=== PATIENT | female | born 1965 | race Caucasian/White ===

== ENCOUNTER 2016-09-14 08:02 | Day surgery (SDC) | payer OTHER ==
[2016-09-11 16:20] VITALS: BMI 31.6
[2016-09-14] MEDS ORDERED: GENTAMICIN SO4 80 MG/2 ML VIAL ONE ×2 (09:00→11:38)
[2016-09-14] MEDS ORDERED: ceFAZolin SODIUM 1 GM VIAL ONE ×3 (09:00→11:38)
[2016-09-14] MEDS ORDERED: ONDANSETRON 4 MG/2 ML VIAL ONE ×2 (09:06→13:27)
[2016-09-14] MEDS ORDERED: LIDOCAINE HCL/PF 2% SDV 5ML VIAL ONE (09:06)
[2016-09-14] MEDS ORDERED: ROCURONIUM BROMIDE 50 MG/5 ML VIAL ONE ×2 (09:06→11:07)
[2016-09-14] MEDS ORDERED: DEXAMETHASONE SOD PHOSPHATE 4 MG/1 ML VIAL ONE ×2 (09:06→13:27)
[2016-09-14] MEDS ORDERED: MIDAZOLAM HCL 2 MG/2 ML SINGLE DOSE VIAL ONE (09:38)
[2016-09-14] MEDS ORDERED: PROPOFOL 20 ML ONE (09:39)
[2016-09-14] MEDS ORDERED: EPINEPHrine/PF 1 MG/1 ML (1:1,000) AMPULE ONE (09:50)
[2016-09-14] MEDS ORDERED: LIDOCAINE HCL 1%, 10 MG/ML (20ML VIAL) ONE (09:50)
[2016-09-14] MEDS ORDERED: BUPIVACAINE HCL/PF 2.5 MG/ML - 30 ML VIAL IJ ONE (10:41)
[2016-09-14] MEDS ORDERED: ACETAMINOPHEN INJECTION 100 ML IVPB ONE (13:29)
[2016-09-14] MEDS ORDERED: ONDANSETRON 4 MG/2 ML VIAL IVPUSH PRN (13:36)
[2016-09-14] MEDS ORDERED: LACTATED RINGERS SOLUTION 1,000 ML IV SCH ×2 (13:45→14:30)
[2016-09-14] MEDS ORDERED: BACITRACIN 30 GM TUBE TOPICAL OINTMENT ONE (13:47)
[2016-09-14] MEDS ORDERED: ACETAMINOPHEN 1000 MG/100 ML VIAL (NON FORMULARY) IVPB PRN (14:19)
[2016-09-14] MEDS ORDERED: ONDANSETRON 4 MG/2 ML VIAL IVPB PRN (14:19)
[2016-09-14] MEDS: PROMETHAZINE HCL 25 MG/1 ML VIAL IVPUSH PRN ×2 (15:04→15:17)
[2016-09-14] MEDS ORDERED: FAMOTIDINE 20 MG/50 ML IVPB 50 ML IVPB ONE (15:23)
--- NOTE | 2016-09-14 15:27 | OP ---
DATE OF OPERATION: 09/14/2016 TITLE OF PROCEDURE: Bilateral 2nd stage of breast reconstruction with removal of existing breast prosthetic devices and replacement with permanent breast prosthetic devices, which are silicone gel breast implants, bilateral periprosthetic capsulectomies, bilateral revision of breast reconstruction using re-elevation of mastectomy flap, and resetting of the inframammary fold, lateral chest wall lipectomy with direct excision and liposuction for revision of bilateral breast reconstructions. ATTENDING SURGEON: Chip Londono MD ACTUARIAL MATHEMATICIAN: There were no assistants. ANESTHESIA: General endotracheal anesthesia. Patient was marked in the holding area, all incisions, resulting scars. Risks, benefits, and alternatives were discussed. She was awake and aware of all incisions and resulting scars. DESCRIPTION OF PROCEDURE: The patient was brought to the operating room, placed in a supine position. All pressure points were carefully padded by surgical and anesthesia teams. Two grams of Ancef were given preoperatively. She was given SONIA hose and sequential compression devices. She was prepped and draped in standard surgical fashion. A time-out was called. Patient, procedure, and side site were verified. After which, attention was first directed towards the left breast, where the lateral inframammary fold was incised. The mastectomy flap was re-elevated laterally. Excess lateral fat was excised under direct vision. The lateral fat roll as it continued into the axilla was unfolded, and the excess was removed. A new inframammary fold was created by plication of the residual skin and fat to the proposed inframammary fold with a series of interrupted buried 2-0 Vicryl sutures. The skin was tailor-tacked with kirstie at the new inframammary fold. The vertical breast incision was then re-incised, and dissection carried down to the level of the periprosthetic capsule. A capsulotomy was then performed, and the existing saline device was opened, fluid was evacuated, and the device was removed. The capsulectomy was then performed, first on the posterior wall and then on the anterior wall with Bovie cautery, and hemostasis was fully achieved. The superior pocket was elevated to accommodate a taller device. After the pocket was rinsed with triple antibiotic solution, first a style 410 Natrelle MX-685 mL shaped gel implant was placed into the pocket. The tissues were temporarily closed after the implant was properly oriented, and the skin was tailor-tacked. Attention was then directed towards the contralateral side where a mirror image procedure was performed. The inframammary fold laterally was reset. Excess skin and fat was removed. Skin is tailor-tacked. A vertical incision was made over the existing vertical incision on the breast, dissection carried down to the level of the periprosthetic capsule. Capsulotomy was performed. The saline device was opened and evacuated of saline. It was removed. Capsulectomy was performed both anteriorly and posteriorly. Hemostasis was assured. The pocket was rinsed with triple antibiotic solution, and a style 20 Natrelle saline gel sizer was then placed within the cavity. This is 750 mL, and skin was then tailor tacked. Patient was then then brought to a seated upright position, and assessment was made for preference. It was clearly preferred that the round silicone device looked better than the shaped silicone device, and the decision was made to sacrifice the shaped saline device and to use smooth, round, high-profile silicone gel implants bilaterally. While on the right side, the sizer was removed. The wound was once again rinsed with triple antibiotic solution. Gloves were changed. Using a Moody funnel, a Natrelle style SRX-750 smooth round silicone gel implant was placed, oriented properly. The capsule was then closed with a running 3-0 Monocryl suture. The deep fascial tissue of the mastectomy flaps and skin and muscle were repaired with a running 3-0 Monocryl suture. The dermis was approximated with a running locking 3-0 Monocryl suture followed by a running subcuticular 3-0 Monocryl suture. At this point, wetting solution was used for liposuction of bilateral axillae. A total of 500 mL of wetting solution was infiltrated between the 2 sides. The wetting solution was a liter of normal saline with 1 ampule of epinephrine and 20 mL of 1% lidocaine plain. While the wetting solution was sitting in the tissues, closure of the lateral reconstruct inframammary folds was performed, first with a series of interrupted buried deep dermal 3-0 Monocryl suture followed by a running subcuticular 3-0 Monocryl suture. Prior to final closure, liposuction was performed, first on the left side. A MicroAire Power-Assisted Liposuction was performed using a 4-mm cannula. The end-points were the appearance of blood in the aspirate as well as smooth even contour. The total lipoaspirate on the left was 210 mL and on the right 140 mL, a total lipoaspirate for the case was 350 mL. The remainder of the closure was performed. Liposuction was required, an additional stab wound incision in an existing axillary scar on the left, that was closed with 5-0 nylon suture. The breasts were dressed with bacitracin and Telfa, ABD, and 4x4 gauze, and a tube-top breast binder was applied. Patient was awoken from anesthesia, transferred to recovery without complications. Rubén [id number]
[2016-09-14] MEDS ORDERED: FAMOTIDINE 20 MG PREMIXED IVPB IVPB ONE (15:30)
[2016-09-14 16:31] VITALS: TEMP 98
[2016-09-14 19:40] VITALS: BP 112/64; PULSE 76
--- NOTE | 2016-09-18 11:42 | PATH ---
Surgical Pathology Report Patient Name: KOFI GAVIN [facility]. Rec. #: [id number] /Age/Gender: 1965 (Age: 51) / F Account: [id number] Location: [facility] AMBULATORY Taken: 09/14/2016 Received: 09/14/2016 Reported: 09/18/2016 Physicians: Chip Londono Specimen(s) Received A: CAPSULE LEFT BREAST B: CAPSULE RIGHT BREAST C: RIGHT AND LEFT BREAST EXPANDERS EXPLANT Clinical History Bilateral acquired absence of breasts Final Diagnosis A. SOFT TISSUE, LEFT BREAST, EXCISION: FIBROUS TISSUE WITH CHRONIC INFLAMMATION AND FOREIGN BODY REACTION CONSISTENT WITH BREAST IMPLANT CAPSULE. SKELETAL MUSCLE IS PRESENT. NO CARCINOMA IDENTIFIED. B. SOFT TISSUE, RIGHT BREAST, EXCISION: FIBROUS TISSUE WITH FOREIGN BODY REACTION CONSISTENT WITH BREAST IMPLANT CAPSULE. SKELETAL MUSCLE IS PRESENT. NO CARCINOMA IDENTIFIED. C. NETWORK SECURITY CONSULTANT, RIGHT AND LEFT BREAST, REMOVAL: TWO MEDICAL DEVICES CONSISTENT WITH BREAST TISSUE EXPANDERS (GROSS ONLY). Comment: Also see [id number]. Electronically Signed Scotty Garcia M.D. Gross Description A. Received in formalin, labeled "capsule left breast," is a 5.0 x 4.8 x 0.3 cm aggregate of multiple carter-arellano, irregular, unoriented portions of firm fibrous tissue, consistent with portions of a fibrous capsule. No discrete masses are identified. Regional Project Manager sections are submitted in one cassette. B. Received in formalin, labeled "capsule right breast," is a 4.5 x 3.4 x 0.3 cm aggregate of multiple carter-arellano, irregular, unoriented portions of firm fibrous tissue, consistent with portions of a fibrous capsule. No discrete masses are identified. Regional Project Manager sections are submitted in one cassette. C. Received fresh, labeled "right and left breast expanders," are 2 carter, irregular devices averaging 15.5 x 13.0 x 3.5 cm, consistent with breast tissue expanders. No soft tissue is present. No sections are submitted, gross only. 09/15/2016 saudi09/15/2016
== END 2016-09-14 19:00 | disposition home or self-care (01) ==
LOC: FASU 08:02
PROVIDERS: ATTEND Plastic Surgery
PROC: 0HPT0JZ Removal of Synthetic Substitute from Right Breast, Open Approach (ICD-10-PCS; 2016-09-14)
PROC: 0HPU0JZ Removal of Synthetic Substitute from Left Breast, Open Approach (ICD-10-PCS; 2016-09-14)
PROC: 0HPT0JZ Removal of Synthetic Substitute from Right Breast, Open Approach (ICD-10-PCS; 2016-09-14)
PROC: 0HUU0JZ Supplement Left Breast with Synthetic Substitute, Open Approach (ICD-10-PCS; 2016-09-14)
PROC: 0HUT0JZ Supplement Right Breast with Synthetic Substitute, Open Approach (ICD-10-PCS; 2016-09-14)
PROC: 0HPU0NZ Removal of Tissue Expander from Left Breast, Open Approach (ICD-10-PCS; 2016-09-14)
PROC: 0HPT0NZ Removal of Tissue Expander from Right Breast, Open Approach (ICD-10-PCS; 2016-09-14)
PROC: 0HPU0JZ Removal of Synthetic Substitute from Left Breast, Open Approach (ICD-10-PCS; principal; 2016-09-14 10:36)
DX: C50.912 Malignant neoplasm of unspecified site of left female breast (principal); Z90.11 Acquired absence of right breast and nipple; Z90.12 Acquired absence of left breast and nipple
CPT/HCPCS: 84703; 88300-TC; 88304-TC; 94760